=== PATIENT | female | born 1970 | race American Indian/Alaskan Native ===

== ENCOUNTER 2016-03-20 10:15 | Outpatient (CLI) | payer OTHER ==
--- NOTE | 2016-03-20 11:31 | Mammography Report ---
BILATERAL MAMMOGRAM with CAD: HISTORY: Baseline cancer screening. FINDINGS: The breast tissue is heterogeneously dense, which could obscure detection of small masses (approximately 50%-75% glandular). No mass, distortion, suspicious calcification, or skin change is seen. IMPRESSION: Negative mammogram. There is no mammographic evidence of malignancy. RECOMMENDATION: Follow-up per ACS guidelines. BI-RADS CATEGORY: 1 = Negative ACR BI-RADS MAMMOGRAPHIC CODES: 0 = Needs additional imaging evaluation; 1 = Negative; 2 = Benign; 3 = Probably benign; 4 = Suspicious; 5 = Malignant; 6 = Known biopsy-proven malignancy COMMENT: 1. Dense breast tissue, i.e., adenosis, fibrocystic changes, etc., may obscure an underlying neoplasm. 2. Approximately 10% of cancers are not detected with mammography. 3. A negative mammography report should not delay biopsy if a clinically suspicious mass is present. COMMENT: Patient follow-up letters are generated in [employer].
== END 2016-03-20 10:16 | disposition home or self-care (01) ==
LOC: MAMMO 10:15
PROVIDERS: ATTEND Internal Medicine
DX: Z12.31 Encounter for screening mammogram for malignant neoplasm of breast (principal)
CPT/HCPCS: 77067; G0202

== ENCOUNTER 2016-12-22 13:49 | Outpatient (CLI) | payer OTHER ==
--- NOTE | 2016-12-22 14:51 | XRay Report ---
CHEST 2 VIEWS INDICATION: Reactive PPD. COMPARISON: 04/13/2013. FINDINGS: PA and lateral chest radiographs demonstrate normal cardiomediastinal silhouette. Clear lungs. Few tiny AP window/left hilar calcifications possible. Intact bones. CONCLUSION: No acute disease in the chest. Thank you for the opportunity to participate in this patient's care.
== END 2016-12-22 13:50 | disposition home or self-care (01) ==
LOC: XRAY 13:49
PROVIDERS: ATTEND Internal Medicine
DX: R76.11 Nonspecific reaction to tuberculin skin test without active tuberculosis (principal)
CPT/HCPCS: 71020

== ENCOUNTER 2018-05-10 13:50 | Outpatient (CLI) | payer OTHER ==
--- NOTE | 2018-05-10 14:40 | XRay Report ---
ROUTINE CHEST, TWO VIEWS: HISTORY: Positive PPD. The trachea, heart, mediastinal contour, lung blair and bony thorax are unremarkable. IMPRESSION: Unremarkable chest x-ray. No change since 12/22/16.
== END 2018-05-10 13:51 | disposition home or self-care (01) ==
LOC: XRAY 13:50
PROVIDERS: ATTEND Internal Medicine
DX: R76.11 Nonspecific reaction to tuberculin skin test without active tuberculosis (principal)
CPT/HCPCS: 71046

== ENCOUNTER 2020-01-02 15:50 | Outpatient (CLI) | payer OTHER ==
--- NOTE | 2020-01-02 16:59 | XRay Report ---
EXAMINATIONS: XR femur 2+V RT, XR hip 2-3V RT INDICATION / CLINICAL INFORMATION: RIGHT HIP PAIN RADIATING TO THE RIGHT GLUTEUS AREA COMPARISON: None available. FINDINGS: BONES / JOINT(S): No acute fracture or subluxation. Mild right hip osteoarthritis. SOFT TISSUES: No significant abnormality. ADDITIONAL FINDINGS: None. IMPRESSION: Mild right hip osteoarthritis. No acute process identified in the right hip or femur. Signer Name: Jacob Pineda MD Signed: 01/02/2020 4:55 PM Workstation Name: [id number]
== END 2020-01-02 15:51 | disposition home or self-care (01) ==
LOC: XRAY 15:50
PROVIDERS: ATTEND Internal Medicine
DX: M16.11 Unilateral primary osteoarthritis, right hip (principal)

== ENCOUNTER 2020-12-28 15:19 | Outpatient (CLI) | payer OTHER ==
--- NOTE | 2020-12-28 16:38 | XRay Report ---
Thoracic spine 2 views INDICATION: Back pain FINDINGS: Mild curvature the thoracolumbar spine. Pedicles appear normal throughout. No loss of verte bral body height. Signer Name: Herberth Allen MD Signed: 12/28/2020 4:33 PM Workstation Name: [id number]
--- NOTE | 2020-12-28 16:41 | XRay Report ---
Lumbar spine 2 views INDICATION: Back pain FINDINGS: Facet degenerative change L4-5 and L5-S1. Visualized sacrum appears normal. Minimal curvatu re the spine. No compression fracture. Signer Name: Herberth Allen MD Signed: 12/28/2020 4:37 PM Workstation [facility]: [id number]
--- NOTE | 2020-12-28 16:43 | XRay Report ---
Cervical spine 3 views INDICATION: Neck pain FINDINGS: Discogenic degenerative change throughout cervical spine. Small anterior disc osteophytes a t several levels. No subluxation. Odontoid appears normal. Signer Name: Herberth Allen MD Signed: 12/28/2020 4:38 PM Workstation Name: [id number]
--- NOTE | 2020-12-28 17:12 | XRay Report ---
XR hips BILAT 2V w/pelvis INDICATION / CLINICAL INFORMATION: M54.30 SCIATICA. COMPARISON: None available. FINDINGS: BONES/JOINT(S): No acute fracture or subluxation. No significant degenerative changes. SOFT TISSUES: No significant abnormality. ADDITIONAL FINDINGS: None. Signer Name: Luis Tobias MD Signed: 12/28/2020 5:08 PM [facility]station Name: [id number]
== END 2020-12-28 15:20 | disposition home or self-care (01) ==
LOC: XRAY 15:19
PROVIDERS: ATTEND Nurse Practitioner
DX: M47.812 Spondylosis without myelopathy or radiculopathy, cervical region (principal); M25.78 Osteophyte, vertebrae; M47.817 Spondylosis without myelopathy or radiculopathy, lumbosacral region; M47.814 Spondylosis without myelopathy or radiculopathy, thoracic region; M54.30 Sciatica, unspecified side; M25.552 Pain in left hip; M25.551 Pain in right hip
CPT/HCPCS: 72040; 72070; 72100; 73521